=== PATIENT | male | born 1975 | race Caucasian/White ===

== ENCOUNTER 2018-01-16 19:38 | Day surgery (SDC) | payer OTHER, SELFPAY ==
[2018-01-16 19:39] VITALS: BP 142/101; PULSE 67; PULSE 83; RESP 18; TEMP 37; O2SAT 100; O2SAT 98; BMI 38.7
--- NOTE | 2018-01-16 20:29 | CT_ITS ---
STUDY: CT ABDOMEN AND PELVIS WITH CONTRAST REASON FOR EXAM: Male, 42 years old. Acute appendicitis RADIATION DOSAGE (If Supplied By Facility): CTDIvol = ( 15.37 ) mGy, DLP = ( 1363.55 ) mGycm TECHNIQUE: Transaxial images were obtained from the dome of the diaphragm to the symphysis pubis with oral contrast. 100 ml of Isovue 300 contrast was administered. Sagittal and coronal images were reconstructed. Individualized dose optimization techniques were used for this CT. COMPARISON: None. FINDINGS: The visualized lung bases are unremarkable. The visualized portions of the heart are within normal limits. There is hepatomegaly with diffuse hepatic enlargement. Normal gallbladder and extrahepatic biliary system. Normal spleen. Normal pancreas. Normal bilateral adrenal glands. Normal right kidney. Normal left kidney. Normal visualized stomach. Normal small intestine. Normal colon. There is a tubular, thick-walled appendix (>7mm), consistent with acute appendicitis, series 2 images 85-90. There is a calcified appendicolith. Normal abdominal aorta. Normal inferior vena cava. Normal retroperitoneum. Normal urinary bladder. Normal abdominal wall. Normal osseous structures. CT/Abdomen/Pelvis WITH Contrast IMPRESSION: Acute appendicitis. No obstruction or abscess Hepatomegaly Results discussed with Dr. Xie. N.B. : The above information has been verbally conveyed by Matt Jasmine MD to Dr. Gladys Xie, Referring Physician, on 01/16/2018 22:32:02 (ET). Electronically Signed: Matt Jasmine MD at 22:32 EDT , Service support ,
--- NOTE | 2018-01-16 20:32 | ED.DCSUM_ITS ---
- ER Visit Summary Date of Service: 01/16/18 Chief Complaint: Abdominal pain History of Present Illness: The patient is a 42 M presenting with right lower quadrant abdominal pain. He states this began earlier today while at work. He had nausea throughout the day. He has had dry heaves. He denies fever. Denies diarrhea or constipation. Denies urinary complaints. He has had a decreased appetite today. He denies sick contacts. He called the nurse hotline for his physician and was advised to come to the ED. Physical Examination: Vitals are stable. Patient is afebrile. Alert no acute distress. HEENT exam is unremarkable. Neck is supple. Lungs are clear and equal bilaterally. Heart is regular rate and rhythm. Abdomen is soft right lower quadrant tenderness, voluntary guarding, no rebound Extremities are unremarkable. Skin is warm and dry. No focal neurologic deficit. Remainder of exam is unremarkable. Emergency Department Course and Treatment: Patient was given IV fluids. He declined pain medication. CBC showed white count 19.7. Chemistries unremarkable. Urinalysis unremarkable. CT abdomen pelvis shows acute appendicitis. No obstruction or abscess. Patient is given Zosyn IV. Discussed with Dr. Montemayor. Patient will be taken to the operating room per Dr. Montemayor. Disposition: To operating room Impression: Acute appendicitis This note was generated with [employer] dictation software. It may contain incorrect words, spelling, and punctuation that were not noted in review of the chart prior to signing ED Disposition - Plan for ED Patient: Chief Complaint: Abd Pain Referrals: Balaji Gunn MD [STAFF PHYSICIAN] -
[2018-01-16] MEDS: 0.9% Normal Saline 1,000 ML 1000 ML IV (20:34)
[2018-01-16 20:43] LABS: Bacteria 0 SEEN /hpf (None Seen); Red Blood Cells-Urine 0 SEEN /hpf (0-5); White Blood Cells 0 SEEN /hpf (0-5)
[2018-01-16 20:48] LABS: Absolute Lymphocyte Count 1.67 X10^3/ul (0.83-4.51); Basophil# 0.03 X10^3/uL; Basophil% 0.2 % (0-1); Eosinophil# 0.04 X10^3/uL; Eosinophils% 0.2 % (0-5); Hematocrit 45.4 % (40-54); Hemoglobin 15.4 g/dl (13.0-16.5); Lymphocyte # 1.67 X10^3/ul (4.0); Lymphocyte % 8.5 % (19-41); Mean Corp Hgb Conc 33.9 g/gl (32-36); Mean Corpuscular Hgb 29.7 pg (27.0-32.0); Mean Corpuscular Volume 87.5 fL (80-94); Monocyte# 0.98 X10^3/uL; Neutrophil # 16.95 X10^3/uL (2.7-7.7); Neutrophil % 85.8 % (47-70); POSITIVE COUNT NO; POSITIVE DIFFERENTIAL NO; POSITIVE MORPHOLOGY NO; Platelet Count 265 K/mm3 (150-450); RBC Distribution Width CV 13.5 % (11.6-14.6); RBC Distribution Width SD 43.1 fl (35.1-43.9); Red Blood Count 5.19 M/mm3 (4.6-6.2); White Blood Count 19.7 K/mm3 (4.4-11.0)
[2018-01-16 20:59] LABS: Glucose, Dipstick Normal (Normal); Ketone-Dipstick 50 mg/dl (Negative); Leukocyte Esterase-Dipstick Negative /ul (Negative); Nitrite-Dipstick Negative (Negative); Occult Blood-Urine Negative /ul (Negative); Protein-Dipstick Negative (Negative); Specific Gravity, Urine 1.025 (1.002-1.030); Urine Bilirubin Dipstick Negative (Negative); Urine Urobilinogen Normal (Normal)
[2018-01-16 21:03] LABS: Color, Urine Yellow (Yellow); Urine Clarity Clear (Clear)
[2018-01-16 21:07] LABS: BUN 18 mg/dL (7-18); Creatinine, Serum 0.94 mg/dL (0.70-1.30); Estimated Creatinine Clearance 97.02 ml/min; Glucose 112 mg/dL (74-106)
[2018-01-16 21:08] LABS: Anion Gap 7 (5-15); BUN/Creat Ratio 19.1 RATIO (10-20); Calcium,Total 8.8 mg/dL (8.5-10.1); Chloride 107 mmol/L (98-107); EST Glomerular Filtration Rate 92 mL/min (>60); Est Glom Filt Rate - Afr Amer 111 mL/min (>60); Potassium 4.1 mmol/L (3.5-5.1); Sodium Level 143 mmol/L (136-145)
[2018-01-16 21:16] LABS: Mucous, Urine 1+ /hpf (<or=2+); Squamous Epithelial Cells - UA 0-5 SEEN /hpf (0-5)
[2018-01-16 21:40] VITALS: BP 128/67; PULSE 75; RESP 18; TEMP 37; O2SAT 98
[2018-01-16] MEDS: Piperacil/Tazobactam 3.375 GM/50 ML ML IV (22:58)
[2018-01-16 23:00] VITALS: BP 125/66; PULSE 63; RESP 18; TEMP 37; O2SAT 97; BMI 38.7
--- NOTE | 2018-01-16 23:01 | PCM.HP.STD ---
Problem List (1) Appendicitis Status: Acute Qualifiers: Appendicitis type: acute appendicitis Acute appendicitis type: with localized peritonitis Qualified Code(s): K35.3 - Acute appendicitis with localized peritonitis History of Present Illness Date of Admission: 01/16/18 The patient is a 42 year old M who presents to the emergency department was [facility] today with the gradual and continuous onset of right lower quadrant abdominal pain initially starting periumbilical workup included a CAT scan which showed acute appendicitis a white count was 19.7 he was having associated nausea and vomiting with this as well as anorexia. Past medical history significant for hypertension he has lost a certain amount of weight and he is no longer on his hypercholesterol medications. I have been asked to see the patient by Dr. Xie for evaluation of acute appendicitis. Past Medical History Allergies acetaminophen [From Percocet] Adverse Reaction (Verified 01/16/18 19:39) Nausea oxycodone [From Percocet] Adverse Reaction (Verified 01/16/18 19:39) Nausea Home Medications: Ambulatory Orders Medication Instructions Recorded Lisinopril 20 mg PO DAILY 01/16/18 Naproxen Sodium [Aleve] 220 mg PO Q6H PRN PRN 01/16/18 Surgical History: cholecystectomy Psychiatric History: No pertinent psych hx Lives: Spouse/ Significant Other Smoking Status: Never smoker - *Family History Maternal History Items: No pertinent history Review of Systems Constitutional: Reports: Anorexia. Denies: Chills, Fever, Weight Change Eyes: Denies: Blurred vision, Pain, Redness, Vision Change HEENT: Denies: Dysphasia, Ear Pain, Eye Pain, Head Aches, Hearing Changes, Sore Throat Cardiovascular: Denies: Chest Pain, Chest Pressure, Chest Tightness, Palpitations Respiratory: Denies: Cough, Hemoptysis, Shortness of breath at rest, Shortness of breath upon exertion, Wheezing Gastrointestinal: Reports: Abdominal Pain, Nausea, Vomiting Genitourinary: Denies: Dysuria, Frequency, Hematuria, Urgency Musculoskeletal: Denies: Joint Pain Skin: Denies: Lesions, Rash, Wounds Neurological: Denies: Change in Speech, Confusion, Numbness, Tingling, Seizures Psychiatric: Denies: Anxiety, Depression Endocrine: Reports: Change in Body Habitus Hematologic/ Lymphatic: Denies: Adenopathy, Easy Bruising VTE Information - Inpt Only VTE Present on Admission: No VTE Mechan Device Prophylaxis: SCD's VTE Pharm Prophylaxis ordered?: No Reason prophylaxis not ordered:: Treatment Not Indicated Patient Problems: Active and Suspected Problems Appendicitis (Acute) - Physical Exam General: Alert, Oriented x3 HEENT: Atraumatic, PERRLA, EOMI, Normocephalic Oral: Moist Mucosa Neck: Supple, No JVD Lungs: Clear to auscultation Cardiovascular: Regular rate, Regular Rhythm, No murmurs Abdomen: Bowel Sounds Present, Soft, Non-Distended, Tender - Patient is tender in the right lower quadrant with rebound guarding and Rovsing sign Extremities: No clubbing, No cyanosis, No edema Skin: No rashes, No breakdown Musculoskeletal: No Tenderness to Palpation of Joints or Extremities Lymphatic: No Cervical, Supraclavicular, or Inguinal Adenopathy Neurological: Cranial nerves II-XII grossly intact Psych/Mental Status: Normal Affect, Appropriate Vital Signs Temp Pulse Resp BP Pulse Ox 98.6 F 75 18 128/67 H 98 01/16/18 21:40 01/16/18 21:40 01/16/18 21:40 01/16/18 21:40 01/16/18 21:40 Oxygen Delivery Method Room Air Weight: 255 lb 1.197 oz Body Mass Index (BMI) 38.7 Laboratory Tests Past 24 Hrs 01/16/18 01/16/18 01/16/18 20:00 20:07 20:07 WBC 19.7 H RBC 5.19 Hgb 15.4 Hct 45.4 MCV 87.5 MCH 29.7 MCHC 33.9 RDW 13.5 RDW Differential 43.1 Plt Count 265 MPV 11.0 Immature Gran % (Auto) 0.300 Neut % (Auto) 85.8 H Lymph % (Auto) 8.5 L [place] % (Auto) 5.0 Eos % (Auto) 0.2 Baso % (Auto) 0.2 Absolute Neuts (auto) 17.0 H Absolute Lymphs (auto) 1.67 Total Counted Not Reportable Sodium 143 Potassium 4.1 Chloride 107 Carbon Dioxide 29.0 Anion Gap 7 BUN 18 Creatinine 0.94 Estim Creat Clear Calc 97.02 Est GFR (MDRD) Af Amer 111 Est GFR (MDRD) Non-Af 92 BUN/Creatinine Ratio 19.1 Glucose 112 H Calcium 8.8 Urine Color Yellow Urine Clarity Clear Urine pH 5.0 Ur Specific [place] 1.025 Urine Protein Negative Urine Glucose (UA) Normal Urine Ketones 50 H Urine Occult Blood Negative Urine Nitrite Negative Urine Bilirubin Negative Urine Urobilinogen Normal Ur Leukocyte Esterase Negative Urine RBC 0 SEEN Urine WBC 0 SEEN Ur Squamous Epith Cells 0-5 SEEN Urine Bacteria 0 SEEN Urine Mucus 1+ Assessment/Plan All Active Problems Appendicitis (Acute) I plan is perform a laparoscopic appendectomy on the patient. Risk benefits have been reviewed and the patient agrees to proceed.
[2018-01-16 23:03] VITALS: BP 125/66; PULSE 79; RESP 18; O2SAT 96
[2018-01-17] VITALS (9 sets, daily range): BP systolic 103–156; BP diastolic 52–82; PULSE 64–126; RESP 14–18; TEMP 36.7–37.5; O2SAT 96–98
[2018-01-17] MEDS: Bupivacaine Mpf 0.5% 30 ML VIAL
--- NOTE | 2018-01-17 | APP_PTH ---
PATIENT: NIKKI CHAMPAGNE LOC: [facility] [place] U#:[id number] AGE/SX: 42/M ROOM: RE01/16/[address]: Dr. Deric Montemayor MD : 1975 BED: DIS: 01/17/2018 SPEC #: [id number] RECD: 01/17/18 09:21 STATUS: IRVING LINDSAY #: [id number] PATSY: 01/17/18 00:[address]: Deric Montemayor DEPT: SURGICAL PATHOLOGY RECD BY: Gigi Degroot ENTERED: 01/17/18 10:07 SP TYPE: APPENDIX OTHR DR: Dr. Harrison Husain MD Tissues: Appendix, NOS Procedures: Surgery Specimen Level III HEADER OPERATION: Laparoscopic appendectomy PRE-OP DIAGNOSIS: Acute appendicitis TISSUE SUBMITTED: Appendix MICROSCOPIC DIAGNOSIS Appendix: Acute appendicitis and periappendicitis. SJ:luh 01/18/18 MICROSCOPIC DESCRIPTION Slides are reviewed. GROSS DESCRIPTION Received is one container labeled with the patient's name and designated appendix. The specimen consists of an L-shaped appendix measuring 9 cm in length and up to 0.8 cm in average diameter. The attached periappendiceal adipose tissue measures up to 3 cm in width. No obvious perforation is identified. The mucosa is congested. The lumen does not contain fecalith. [employer] sections are submitted in one cassette. / SJ:rg 01/17/18 TC:2 [facility]: [id number]
--- NOTE | 2018-01-17 00:07 | PCM.OPRPT ---
Problem List (1) Appendicitis Status: Acute Qualifiers: Appendicitis type: acute appendicitis Acute appendicitis type: with localized peritonitis Qualified Code(s): K35.3 - Acute appendicitis with localized peritonitis Report of Operation Date of Procedure: 01/17/18 Pre-Operative Diagnosis: k35.3 acute appendicitis Post-Operative Diagnosis: Same Surgery/Procedure Performed:: Laparoscopic appendectomy Type of Anesthesia:: General Anesthesiologist: Cole Jordan Description of Procedure: Patient was brought in the operating room. Placed in the supine position. Under excellent general endotracheal intubation. The abdomen was sterilely prepped and draped in usual fashion. Local was injected supraumbilically. Dissection was carried down to the fascia. The fascia was grasped with [place]. Varies needle was placed inside the abdomen and the abdomen was insufflated to 15 torr. A 10/12 trocar was placed without difficulty. A suprapubic #5 trocar was placed left lower quadrant #5 trochars placed both of these under direct visualization without injury to underlying structures. Patient was placed in the head down and rotated to the left. Patient was noted to have acute appendicitis. I dissected the mesoappendix free and came down on it with the Enseal device I had excellent hemostasis. I transected the base of the appendix with a 45 linear cutter. Once again I had excellent hemostasis. I placed a specimen and specimen bag and delivered through the umbilical port without difficulty. I reinflated the abdomen inspected the right lower quadrant good hemostasis was noted I irrigated out the pelvis no pus was identified. I remove the trochars under direct visualization good hemostasis was noted. Close the fascia the umbilical port with [id number] stitch of 0 Vicryl skin incisions were closed with a particular stitches of 4-0 Monocryl. Steri-Strips are applied. Sterile dressings were applied. The patient tolerated the procedure well. - Admit VTE Documentation VTE Present on Admission: No VTE Mechan Device Prophylaxis: SCD's VTE Pharm Prophylaxis ordered?: No Reason prophylaxis not ordered:: Treatment Not Indicated
[2018-01-17] MEDS: Lactated Ringers 1,000 ML 100 ML IV (02:00)
[2018-01-17] MEDS: Piperacil/Tazobactam 3.375 GM/50 ML ML IV (05:56)
--- NOTE | 2018-01-17 07:15 | PCM.DC.APPY ---
Discharge Diet: Light diet - advance as tolerated Discharge Activity: May Not Drive - for 3 days or while taking narcotic pain meds. May shower in (days): 1 Call your doctor if your incision/area has: Continuous Slow Oozing, Sudden Increased Bleeding, Increased Pain/ Swelling, Increased Redness, Foul Smelling Discharge Call your doctor if you observe: Fever of 101 or Higher Suture Line Care: Avoid Pulling/Pushing, Avoid Pinching/Bending Cleanse incision/area with: Soap & Water Additional Dressing/Incision Instructions:: Keep dressing clean and dry. Change or remove dressing in 2 days. Leave steri strips for 1 week. May protect with a gauze bandaid. Medications to take at Discharge Lisinopril 20 mg PO DAILY 01/16/18 Naproxen Sodium [Aleve] 220 mg PO Q6H PRN PRN 01/16/18 Hydrocodone Bitart/Apap 5-325 [[place] 5MG-325MG] 1 - 2 tab PO Q4H PRN PRN 5 Days #30 tab 01/17/18 Allergies/Adverse Reactions: Allergies acetaminophen [From Percocet] Adverse Reaction (Verified 01/16/18 19:39) Nausea oxycodone [From Percocet] Adverse Reaction (Verified 01/16/18 19:39) Nausea The following prescriptions were given: Hydrocodone Bitart/Apap 5-325 [[place] 5MG-325MG] 1 - 2 tab PO Q4H PRN PRN 5 Days #30 tab PRN Reason: Pain Primary Care Physician: Balaji Gunn MD [STAFF PHYSICIAN] - Test Results: Test results from this visit will be discussed in further detail at your follow-up appointment, if applicable. Please Follow Up With: Katie Earl PA-C - [phone] When: 7-10 DAYS Proposed Discharge Date: 01/17/18
--- NOTE | 2018-01-17 07:17 | PCM.PN.SRG ---
Patient Problems: Active and Suspected Problems Appendicitis (Acute) Subjective: Patient evaluated resting comfortably in bed. He denies nausea, vomiting, fever. He notes minimal amount of abdominal discomfort. He denies difficulties with urination. He denies flatus. - Physical Exam General: Alert, Oriented x3, Cooperative Abdomen: Soft, Hypoactive Bowel Sounds, Distended - sightly, Tender - RLQ, - - Incisions c/d/i. Minimal amount of dried blood noted on bandage. No erythema or signs of infection noted Vital Signs Temp Pulse Resp BP Pulse Ox 98.5 F 82 16 112/56 L 97 01/17/18 05:50 01/17/18 05:50 01/17/18 05:50 01/17/18 05:50 01/17/18 05:50 Oxygen Delivery Method Room Air Weight: 255 lb 1.197 oz Body Mass Index (BMI) 38.7 Intake and Output for Last 24 Hours 01/15/18 01/16/18 01/17/18 23:59 23:59 23:59 Intake Total 1200 / 1200 Balance 1200 / 1200 Laboratory Tests Past 24 Hrs 01/16/18 01/16/18 01/16/18 20:00 20:07 20:07 WBC 19.7 H RBC 5.19 Hgb 15.4 Hct 45.4 MCV 87.5 MCH 29.7 MCHC 33.9 RDW 13.5 RDW Differential 43.1 Plt Count 265 MPV 11.0 Immature Gran % (Auto) 0.300 Neut % (Auto) 85.8 H Lymph % (Auto) 8.5 L [place] % (Auto) 5.0 Eos % (Auto) 0.2 Baso % (Auto) 0.2 Absolute Neuts (auto) 17.0 H Absolute Lymphs (auto) 1.67 Total Counted Not Reportable Sodium 143 Potassium 4.1 Chloride 107 Carbon Dioxide 29.0 Anion Gap 7 BUN 18 Creatinine 0.94 Estim Creat Clear Calc 97.02 Est GFR (MDRD) Af Amer 111 Est GFR (MDRD) Non-Af 92 BUN/Creatinine Ratio 19.1 Glucose 112 H Calcium 8.8 Urine Color Yellow Urine Clarity Clear Urine pH 5.0 Ur Specific [place] 1.025 Urine Protein Negative Urine Glucose (UA) Normal Urine Ketones 50 H Urine Occult Blood Negative Urine Nitrite Negative Urine Bilirubin Negative Urine Urobilinogen Normal Ur Leukocyte Esterase Negative Urine RBC 0 SEEN Urine WBC 0 SEEN Ur Squamous Epith Cells 0-5 SEEN Urine Bacteria 0 SEEN Urine Mucus 1+ Medical Necessity - Tobacco Use Smoking Status: Never smoker Assessment/Plan All Active Problems Appendicitis (Acute) I am following this patient in conjunction with Dr. Montemayor. S/p laparoscopic appendectomy Clear liquids for breakfast Advance to fulls for lunch Probable discharge this afternoon Will call later for progress report Code Visit Inpatient E&M: 17238 Subs Hosp L1 - Post-op; No charge
[2018-01-17] MEDS: Acetaminophen 325 MG Tablet 650 MG PO (08:50)
== END 2018-01-17 13:41 | disposition home or self-care (01) ==
LOC: ED 21:10 → SDC 23:06 → AC 23:06 → MS3 01-17 01:34
PROVIDERS: Emergency Provider Emergency Medicine; Family Provider Family Medicine; PCP Family Medicine; Visit Provider Surgery
PROC: 0DTJ4ZZ Resection of Appendix, Percutaneous Endoscopic Approach (ICD-10-PCS; CPT 44970; principal; 2018-01-17)
DX: K35.3 Acute appendicitis with localized peritonitis (principal); I10 Essential (primary) hypertension; E78.00 Pure hypercholesterolemia, unspecified; Z90.49 Acquired absence of other specified parts of digestive tract
CPT/HCPCS: 44970; 74177; 80048; 81001; 85025; 88304; 99282; J7030; J7120; A4216; C1760; J2405